=== PATIENT | female | born 1980 | race Caucasian/White ===

== ENCOUNTER → 2017-10-25 | Outpatient (REF) | payer OTHER | LOC: M LAB REF 11:58 | DX: F11.21 Opioid dependence, in remission (principal) | CPT/HCPCS: 80362 ==

== ENCOUNTER → 2017-11-01 | Outpatient (REF) | payer OTHER, MEDICAID | LOC: M LAB REF 16:19 | DX: F11.21 Opioid dependence, in remission (principal) ==

== ENCOUNTER → 2017-11-08 | Outpatient (REF) | payer OTHER, MEDICAID | LOC: M LAB 11-09 12:25 | DX: F11.21 Opioid dependence, in remission (principal) ==

== ENCOUNTER → 2017-11-15 | Outpatient (REF) | payer OTHER, MEDICAID | LOC: M LAB REF 18:28 | DX: F19.21 Other psychoactive substance dependence, in remission (principal) ==

== ENCOUNTER → 2017-11-22 | Outpatient (REF) | payer OTHER, MEDICAID | LOC: M LAB REF 18:54 | DX: F11.21 Opioid dependence, in remission (principal) ==

== ENCOUNTER → 2017-11-29 | Outpatient (REF) | payer OTHER, MEDICAID | LOC: M LAB REF 19:32 | DX: F11.21 Opioid dependence, in remission (principal) ==

== ENCOUNTER → 2017-12-04 | Outpatient (REF) | payer OTHER, MEDICAID | LOC: M LAB REF 19:11 | DX: F11.21 Opioid dependence, in remission (principal) | CPT/HCPCS: 80362 ==

== ENCOUNTER → 2017-12-11 | Outpatient (REF) | payer OTHER, MEDICAID | LOC: M LAB REF 22:39 | DX: F11.21 Opioid dependence, in remission (principal) ==

== ENCOUNTER → 2017-12-18 | Outpatient (REF) | payer OTHER, MEDICAID | LOC: M LAB REF 19:38 | DX: F11.21 Opioid dependence, in remission (principal) ==

== ENCOUNTER → 2017-12-25 | Outpatient (REF) | payer OTHER, MEDICAID | LOC: M LAB REF 20:11 | DX: I10 Essential (primary) hypertension (principal) | CPT/HCPCS: 80307 ==

== ENCOUNTER → 2018-01-01 | Outpatient (REF) | payer OTHER, MEDICAID | LOC: M LAB REF 17:02 | DX: F11.21 Opioid dependence, in remission (principal) | CPT/HCPCS: 80362 ==

== ENCOUNTER → 2018-01-08 | Outpatient (REF) | payer OTHER, MEDICAID | LOC: M LAB REF 12:05 | DX: F11.21 Opioid dependence, in remission (principal) ==

== ENCOUNTER → 2018-01-22 | Outpatient (REF) | payer OTHER, MEDICAID ==
[2018-01-29 00:08] LABS: BARBITURATES SCREEN, URINE Negative ng/mL (Cutoff=200); BENZODIAZEPINES, URINE SCREEN Negative ng/mL (Cutoff=200); CANNABINOID SCREEN, URINE Negative ng/mL (Cutoff=20); COCAINE SCREEN, URINE Negative ng/mL (Cutoff=300); CREATININE, URINE 18.5 mg/dL (20.0-300.0); METHADONE, URINE SCREEN Negative ng/mL (Cutoff=300); NALOXONE RESULT Positive (.); OXYCODONE, SCREEN, URINE Negative ng/mL (Cutoff=100); PCP SCREEN, URINE Negative ng/mL (Cutoff=25); pH, URINE 8.5 (4.5-8.9)
== END ==
LOC: M LAB REF 16:38
DX: F11.21 Opioid dependence, in remission (principal)

== ENCOUNTER → 2018-02-05 | Outpatient (REF) | payer OTHER, MEDICAID | LOC: M LAB REF 17:16 | DX: F11.21 Opioid dependence, in remission (principal) | CPT/HCPCS: 80362 ==

== ENCOUNTER → 2018-03-05 | Outpatient (REF) | payer OTHER, MEDICAID | LOC: M LAB REF 16:38 | DX: F11.21 Opioid dependence, in remission (principal) | CPT/HCPCS: 80362 ==

== ENCOUNTER → 2018-03-19 | Outpatient (REF) | payer OTHER, MEDICAID ==
[2018-03-27 10:16] LABS: AMPHETAMINE SCREEN, URINE Negative ng/mL (Cutoff=1000); BARBITURATES SCREEN, URINE Negative ng/mL (Cutoff=200); BENZODIAZEPINES, URINE SCREEN Negative ng/mL (Cutoff=200); CANNABINOID SCREEN, URINE Negative ng/mL (Cutoff=20); COCAINE SCREEN, URINE Negative ng/mL (Cutoff=300); CREATININE, URINE 144.4 mg/dL (20.0-300.0); FENTANYL URINE SCREEN Negative pg/mL (Cutoff=2000); METHADONE, URINE SCREEN Negative ng/mL (Cutoff=300); NALOXONE RESULT Positive (.); OPIATE SCREEN, URINE Negative ng/mL (Cutoff=300); OXYCODONE, SCREEN, URINE Negative ng/mL (Cutoff=100); PCP SCREEN, URINE Negative ng/mL (Cutoff=25); SPECIFIC GRAVITY, URINE 1.019 (.); URINE BUPRENORPHINE Positive (.); URINE BUPRENORPHINE Positive (Cutoff=10); URINE BUPRENORPHINE See Final Results ng/mL (Cutoff=10); URINE BUPRENORPHINE CONFIRM 110 ng/mL (Cutoff=10); URINE NORBUPRENORPHINE Positive (.); URINE NORBUPRENORPHINE CONFIRM 904 ng/mL (Cutoff=10); pH, URINE 7.7 (4.5-8.9)
== END ==
LOC: M LAB REF 07:31
DX: F11.21 Opioid dependence, in remission (principal)

== ENCOUNTER → 2018-03-24 | Outpatient (REF) | payer OTHER, MEDICAID ==
[2018-03-24 13:40] LABS: APPEARANCE, URINE CLOUDY (CLEAR); BACTERIA, URINE AUTO NEGATIVE (NEGATIVE); BILIRUBIN, URINE AUTO NEGATIVE (NEGATIVE); BLOOD, URINE BLOOD 1+ (NEGATIVE); COLOR, URINE YELLOW (YELLOW); GLUCOSE, URINE (UA) AUTO NEGATIVE (NEGATIVE); KETONE, URINE AUTO NEGATIVE (NEGATIVE); LEUKOCYTE ESTERASE, URINE AUTO 3+ (NEGATIVE); MUCUS, URINE SMALL (NEGATIVE); NITRITE, URINE AUTO NEGATIVE (NEGATIVE); PROTEIN, URINE AUTO NEGATIVE (NEGATIVE); RBC, URINE AUTO 5 /HPF (0-3); SPECIFIC GRAVITY URINE AUTO 1.019 (1.002-1.035); SQUAMOUS EPITHELIAL CELL UR AU 7 /HPF (0-6); UROBILINOGEN, URINE AUTO 0.2 mg/dL (0.0-2.0); WBC, URINE AUTO 102 /HPF (0-3)
== END ==
LOC: M LAB REF 13:18
DX: N39.0 Urinary tract infection, site not specified (principal)

== ENCOUNTER 2018-04-07 21:41 | Emergency (ER) | payer OTHER, MEDICAID | END 2018-04-07 22:26 | disposition left against medical advice (07) | LOC: M ED 21:41 | DX: Z53.21 Procedure and treatment not carried out due to patient leaving prior to being seen by health care provider (principal) ==

== ENCOUNTER 2018-06-08 01:30 | Emergency (ER) | payer MEDICAID, OTHER ==
[2018-06-08] MEDS ORDERED: NS 1,000 ML IV (03:15)
== END 2018-06-08 03:31 | disposition left against medical advice (07) ==
LOC: M ED 01:30
DX: M62.838 Other muscle spasm (principal); F19.11 Other psychoactive substance abuse, in remission; F17.210 Nicotine dependence, cigarettes, uncomplicated; Z79.899 Other long term (current) drug therapy
CPT/HCPCS: 99281

== ENCOUNTER 2019-01-27 09:39 | Emergency (ER) | payer OTHER ==
[~2019-01-27] VITALS: Ht 177.8 cm; Wt 107.4 kg
[~2019-01-27 09:39] MED LIST: AMLO10TA5; BUPR1TAB53; CLEO300C2 PO; CLON0.5T8 PO; IBUP1TAB7 PO; IBUP600T42 PO; LISI-672; LYRI200C PO; NAPR-885 PO; NORV5TAB PO; SUBO8MIS; TRAM50TA2 PO; TYLE325T5 PO; VYVA60CA PO
--- NOTE | 2019-01-27 11:22 | REP ---
Right extremity deep vein duplex ultrasound: The deep veins demonstrate normal compression, normal Doppler color flow and normal Doppler waveforms with respiration and augmentation from the brachial veins to the jugular vein. Impression: There is no right upper extremity deep vein thrombus. Electronically Signed by West Patel MD 01/27/2019 11:13 A
[2019-01-27 11:40] LABS: BASO % 0.4 % (0.0-1.0); EOS # 0.1 10^3/uL (0.0-0.50); EOS % 2.5 % (0.0-3.0); HEMATOCRIT 42.4 % (36.0-47.0); HEMOGLOBIN 14.3 g/dl (12.0-15.5); LYMPH # 2.4 10^3/uL (1.5-4.5); LYMPH % 42.6 % (24.0-44.0); MEAN CORPUSCULAR HEMOGLOBIN 30.2 pg (27.0-33.0); MEAN CORPUSCULAR HGB CONC 33.7 g/dl (32.0-36.5); MEAN CORPUSCULAR VOLUME 89.6 fl (80.0-96.0); MONO # 0.5 10^3/uL (0.0-0.8); MONO % 8.1 % (0.0-5.0); NEUTROPHILS # 2.6 10^3/uL (1.8-7.7); NEUTROPHILS % 46.2 % (36.0-66.0); PLATELET COUNT, AUTOMATED 288 10^3/uL (150-450); RED BLOOD COUNT 4.73 10^6/uL (4.00-5.40); WHITE BLOOD COUNT 5.7 10^3/uL (4.0-10.0)
[2019-01-27 12:03] LABS: ALT/SGPT 46 U/L (12-78); BILIRUBIN,TOTAL 0.5 MG/DL (0.2-1.0); BLOOD UREA NITROGEN 9 MG/DL (7-18); C REACTIVE PROTEIN QUANTITATIV 0.33 MG/DL (0.00-0.30); CALCIUM LEVEL 8.8 MG/DL (8.5-10.1); CARBON DIOXIDE LEVEL 28 MEQ/L (21-32); CHLORIDE LEVEL 107 MEQ/L (98-107); CREATININE FOR GFR 0.76 MG/DL (0.55-1.30); GLOMERULAR FILTRATION RATE > 60.0 (>60); GLUCOSE, FASTING 91 MG/DL (70-100); POTASSIUM SERUM 4.1 MEQ/L (3.5-5.1); SODIUM LEVEL 140 MEQ/L (136-145); TOTAL PROTEIN 8.1 GM/DL (6.4-8.2)
[2019-01-27 12:11] LABS: ERYTHROCYTE SEDIMENTATION RATE 24 mm/hr (0-20)
[2019-01-27] MEDS ORDERED: IBUP-1022 PO (13:31)
[2019-01-27 13:43] VITALS: BP 164/97
--- NOTE | 2019-01-27 15:48 | REP ---
Soft tissue ultrasound of the right elbow soft tissues for swelling and possible abscess: The study includes color Doppler imaging. There is no focal fluid collection that would suggest abscess or hematoma or cyst. However, there is a focal thrombus in the superficial collateral vein in the area of pain at the mid lateral right elbow. Impression: Superficial vein thrombus. No focal fluid collection. Electronically Signed by West Patel MD 01/27/2019 03:40 P
== END 2019-01-27 13:44 | disposition home or self-care (01) ==
LOC: M ED 09:39
DX: I82.611 Acute embolism and thrombosis of superficial veins of right upper extremity (principal); F11.10 Opioid abuse, uncomplicated; F14.10 Cocaine abuse, uncomplicated; I10 Essential (primary) hypertension; B19.20 Unspecified viral hepatitis C without hepatic coma; Z72.0 Tobacco use; Z79.899 Other long term (current) drug therapy; Z88.8 Allergy status to other drugs, medicaments and biological substances

== ENCOUNTER 2019-02-22 17:40 | Emergency (ER) | payer OTHER ==
[~2019-02-22] VITALS: Ht 180.3 cm; Wt 100.2 kg
[2019-02-22 17:40] VITALS: BP 139/93
[~2019-02-22 17:40] MED LIST changes: +IBUP-1022 PO
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
[2019-02-22] MEDS ORDERED: KETOROLAC 30 MG/ML VIAL (J1885) IV ONE (19:15)
[2019-02-22] MEDS ORDERED: methylPREDNISolone INJ 125 MG/2 ML VIAL (J2930) IV ONE (19:15)
[2019-02-22] MEDS ORDERED: GABAPENTIN 300 MG CAP PO ONE (19:15)
== END 2019-02-22 19:23 | disposition left against medical advice (07) ==
LOC: M ED 17:40
DX: I82.611 Acute embolism and thrombosis of superficial veins of right upper extremity (principal); I10 Essential (primary) hypertension; G62.9 Polyneuropathy, unspecified; Z79.899 Other long term (current) drug therapy; Z88.8 Allergy status to other drugs, medicaments and biological substances; F17.210 Nicotine dependence, cigarettes, uncomplicated

== ENCOUNTER 2019-09-09 04:28 | Emergency (ER) | payer MEDICAID, OTHER ==
[~2019-09-09] VITALS: Ht 180.3 cm; Wt 85.0 kg
[2019-09-09 04:28] VITALS: BP 145/94
[2019-09-09] MEDS ORDERED: SUBO4MIS SL (04:35)
[2019-09-09] MEDS ORDERED: PROMETHAZINE INJ 25 MG/ML VIAL (J2550) IM ONE (05:00)
== END 2019-09-09 05:30 | disposition home or self-care (01) ==
LOC: M ED 04:28
DX: R51 Headache (principal); F15.10 Other stimulant abuse, uncomplicated; I10 Essential (primary) hypertension; B18.2 Chronic viral hepatitis C; F17.200 Nicotine dependence, unspecified, uncomplicated; Z79.899 Other long term (current) drug therapy; Z88.8 Allergy status to other drugs, medicaments and biological substances

== ENCOUNTER → 2020-01-06 | Outpatient (REF) | payer OTHER ==
[~2020-01-06] MED LIST changes: +CLON0.5T2 PO; -CLON0.5T8 PO; +SUBO4MIS SL
[2020-01-06 21:34] LABS: APPEARANCE, URINE TURBID (CLEAR); BACTERIA, URINE AUTO 3+ (NEGATIVE); BILIRUBIN, URINE AUTO NEGATIVE (NEGATIVE); BLOOD, URINE BLOOD 1+ (NEGATIVE); COLOR, URINE AMBER (YELLOW); GLUCOSE, URINE (UA) AUTO NEGATIVE (NEGATIVE); KETONE, URINE AUTO NEGATIVE (NEGATIVE); LEUKOCYTE ESTERASE, URINE AUTO 3+ (NEGATIVE); MUCUS, URINE MODERATE (NEGATIVE); NITRITE, URINE AUTO NEGATIVE (NEGATIVE); PROTEIN, URINE AUTO 2+ mg/dL (NEGATIVE); RBC, URINE AUTO 37 /HPF (0-3); SPECIFIC GRAVITY URINE AUTO 1.017 (1.002-1.035); SQUAMOUS EPITHELIAL CELL UR AU 1 /HPF (0-6); UROBILINOGEN, URINE AUTO 0.2 mg/dL (0.0-2.0); WBC, URINE AUTO TNTC /HPF (0-3)
[2020-01-07 09:59] LABS: INFLUENZA A AMPLIFICATION NEGATIVE (NEGATIVE); INFLUENZA B AMPLIFICATION NEGATIVE (NEGATIVE)
== END ==
LOC: M LAB REF 21:18
PROVIDERS: ATTEND Physician Assistant
DX: N39.0 Urinary tract infection, site not specified (principal)

== ENCOUNTER 2020-08-13 00:19 | Emergency (ER) | payer OTHER ==
[~2020-08-13] VITALS: Ht 180.3 cm; Wt 100.0 kg
[~2020-08-13 00:19] MED LIST changes: -AMLO10TA5; +AMLO1TAB25; -LISI-672; +LISI30TA4
[2020-08-13] MEDS ORDERED: KETOROLAC 60MG 2ML VIAL IM ONE (01:00)
[2020-08-13] MEDS ORDERED: LIDOCAINE 5% (LIDODERM) PATCH TD ONE (01:00)
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
[2020-08-13] MEDS ORDERED: ASPE4PAD TOP (01:36)
[2020-08-13] MEDS ORDERED: NAPR-837 PO (01:36)
[2020-08-13] MEDS ORDERED: ACETAMINOPHEN 500 MG TAB PO ONE (01:45)
[2020-08-13 01:58] VITALS: BP 148/80
[2020-08-13] MEDS ORDERED: **NOTE PATIENT COMMENT** MISC XX ONE (13:00)
== END 2020-08-13 02:00 | disposition home or self-care (01) ==
LOC: M ED 00:19
DX: S22.42XA Multiple fractures of ribs, left side, initial encounter for closed fracture (principal); S63.616A Unspecified sprain of right little finger, initial encounter; Y04.8XXA Assault by other bodily force, initial encounter; Y07.9 Unspecified perpetrator of maltreatment and neglect; Y92.89 Other specified places as the place of occurrence of the external cause; I10 Essential (primary) hypertension; Z79.899 Other long term (current) drug therapy; Z79.891 Long term (current) use of opiate analgesic; Z88.8 Allergy status to other drugs, medicaments and biological substances; F17.210 Nicotine dependence, cigarettes, uncomplicated
CPT/HCPCS: 71250; 96372; 99284; J1885

== ENCOUNTER → 2020-12-07 | Outpatient (REF) ==
[~2020-12-07] MED LIST changes: +ASPE4PAD TOP; +NAPR-837 PO
[2020-12-08 18:47] LABS: INFLUENZA A AMPLIFICATION NEGATIVE (NEGATIVE); INFLUENZA B AMPLIFICATION NEGATIVE (NEGATIVE)
== END ==
LOC: M LAB 10:10